=== PATIENT | female | born 1950 | race African-American/Black ===

== ENCOUNTER 2019-12-31 00:48 | Inpatient (IN) | payer MEDICARE, MEDICAID ==
[2019-12-31] MEDS ORDERED: Fentanyl 100 MCG/2 ML VIAL ONE (01:13)
--- NOTE | 2019-12-31 02:38 | PDOC.HHP ---
Hospitalist HPI - History of Present Illness Flank pain History of Present Illness: Patient with complex PMH including ESRD on HD and chronic pain presents to ED for evaluation of right sided flank pain. Tells me that symptoms appear over the weekend. Describes pain as sharp in nature radiating from CVA to right hip area. When most severe is described at 9/10 and interfered with her mobility. Palpation to the area appears to increase pain. Denies any fall or other trauma. Denies any fever chills malaise. Patient does not make any urine any longer hence denies any urinary symptoms. CT scan of the abdomen was obtained which incidentally shows evidence of anasarca, ascites, possible cirrhosis as well as inflamatory changes to left breast concerning for malignancy. Patient being admitted for observation and management of flank pain of unclear etiology as well as coordination of care for newly found ascities/possible cirrhosis and left breast inflamatory changes. Hospitalist ROS - Review of Systems Constitutional: denies: fever, chills, sweats, weakness, malaise, other Respiratory: denies: cough, dry, shortness of breath, hemoptysis, SOB with excertion, pleuritic pain, sputum, wheezing, other Cardiovascular: denies: chest pain, palpitations, orthopnea, paroxysmal noc. dyspnea, edema, light headedness, other Gastrointestinal: reports: abdominal pain (refers bloated feeling) Genitourinary: denies: dysuria, frequency, incontinence, hematuria, retention, other Musculoskeletal: reports: back pain, other (right sided flank pain/superficial) Neurological: denies: weakness, numbness, incoordination, change in speech, confusion, seizures, other Hospitalist History - Past Medical History Source: patient Musculoskeletal: reports: Chronic low back pain (hx of sciatic pain) Renal/: reports: Chronic renal failure - Exam General Appearance: NAD Eye: PERRL, anicteric sclera ENT: normocephalic atraumatic Neck: supple, no JVD Heart: RRR Respiratory: CTAB, no wheezes Gastrointestinal: soft, non-tender, no guarding Extremities: no cyanosis Skin - other findings: Right flank with non specific rash Psychiatric: normal affect, normal behavior, A&O x 3 Hospitalist H&P A/P - Plan Plan: Problem List 1. Flank pain 2. Anasarca 3. Ascites 4. Left sided inflammatory changes to breast 5. History of ESRD on HD Assessment and Plan Presents to evaluation of right sided flank pain of unclear etiology. Does have some skin changes to the area that could be contributing to pain. No evidence of cellulitis. CT scan abdomen does not reveal obvious reason for pain. Incidentally she is found to have ascites/anasarca/possible cirrhosis as well as inflammatory changes to left breast concerning for malignancy. Admit for observation to medical floor Continue with pain control Appears to be on Fentanyl per med records/awaiting med rec Add oxycodone PRN Will consult GI for guidance regarding evaluation of ascites and possible cirrhosis She will need eventual evaluation by GRANULATOR TENDER vs other for left breast abnormality If patient remains in the hospital passed 12/30 she will need nephrology consultation for HD PT/OT evaluation for discharge disposition
[2019-12-31] MEDS ORDERED: Ondansetron PF 4 MG/2 ML Vial IVP PRN (03:17)
[2019-12-31] MEDS: oxyCODONE 5 MG TAB PO PRN ×3 (03:31→20:09)
[2019-12-31 03:46] VITALS: BMI 38.4
[2019-12-31] MEDS: Levothyroxine Sodium 25 MCG TAB PO SCH (06:40)
[2019-12-31 07:20] LABS: #Eosinphils 0.1 thou/uL (0.0-0.7); #Lymphocytes 1.7 thou/uL (1.20-3.40); #Monocytes 1.1 thou/uL (0.11-0.59); #Neutrophils 5.5 thou/uL (1.40-6.50); %Basophils 0.4 % (0.0-1.0); %Lymphocytes 20.2 % (21.0-51.0); %Monocytes 12.9 % (0.0-10.0); %Neutrophils 65.5 % (42.0-75.0); Hemoglobin 10.9 g/dL (12.0-16.0); Mean Corpuscular Hemoglobin 30.4 pg (27.0-31.0); Mean Corpuscular Volume 98.1 fL (78.0-98.0); Mean Platelet Volume 11.8 fL (7.4-10.4); Platelet Count 110 thou/uL (130-400); RBC Distribution Width 16.2 % (11.5-14.5); Red Blood Cell (RBC) Count 3.58 mill/uL (4.20-5.40); White Blood Cell (WBC) Count 8.3 thou/uL (4.8-10.8)
[2019-12-31 07:38] LABS: ALT (SGPT) Less than 7 U/L (8-55); AST (SGOT) 15 U/L (5-34); Albumin 3.5 g/dL (3.4-4.8); Alkaline Phosphatase 95 U/L (40-110); Anion Gap 14 mmol/L (10-20); BUN (Urea Nitrogen) 25 mg/dL (9.8-20.1); Bilirubin, Total 0.7 mg/dL (0.2-1.2); Calc. Creatinine Clearance 17 mL/min (70-130); Calcium 9.1 mg/dL (7.8-10.44); Carbon Dioxide 33 mmol/L (23-31); Chloride 96 mmol/L (98-107); Estimated GFR-MDRD 10; Globulin 3.8 g/dL (2.4-3.5); Glucose 90 mg/dL (80-115); Potassium 3.6 mmol/L (3.5-5.1); Protein, Total 7.3 g/dL (6.0-8.3); Sodium 139 mmol/L (136-145)
[2019-12-31] MEDS: Sevelamer Carbonate 800 MG TAB PO SCH ×3 (08:21→18:26)
[2019-12-31] MEDS: Aspirin Chewable 81 MG TAB PO SCH (08:22)
[2019-12-31] MEDS: Heparin 5,000 UNITS/ML VIAL SC SCH ×3 (08:24→20:00)
[2019-12-31] MEDS: Metoprolol Tartrate 100 MG TAB PO SCH ×2 (11:06→20:01)
[2019-12-31] MEDS: Amlodipine 10 MG TAB PO SCH (11:06)
[2019-12-31] MEDS: Isosorbide Mononitrate (ER) 30 MG TAB PO SCH ×2 (11:06→20:01)
[2019-12-31] MEDS ORDERED: Sodium Chloride 0.9% 500 ML IV SCH (11:30)
--- NOTE | 2019-12-31 19:42 | PDOC.EVN ---
Event Note - Event Note Event Note: Seen and examined. Patient end-stage renal disease on hemodialysis, I have added nephrology consultation. Patient blood pressure on the low side, with chronic pain she has high tolerance to opiates and requesting higher doses. Blood pressure has limited pain control to her satisfaction. I discussed the case with gastroenterology who states that diffuse anasarca and ascites of unclear chronicity. Possible breast CA, though no definitive diagnosis. We will ask for input from oncology. Overall in long-term I do not see this patient doing well despite maximal medical therapy. Consider less aggressive measures with palliative care.
[2019-12-31] MEDS: Atorvastatin Calcium 20 MG TAB PO SCH (20:00)
[2019-12-31] MEDS: Insulin Glargine 10 UNITS in Pre-Filled Syringe 1 EACH SC SCH (20:08)
[2020-01-01] MEDS: Levothyroxine Sodium 25 MCG TAB PO SCH (05:20)
[2020-01-01] MEDS: Metoprolol Tartrate 100 MG TAB PO SCH ×2 (05:59→20:54)
[2020-01-01 06:48] LABS: Ferritin 1039.28 ng/mL (10-291)
[2020-01-01 06:48] LABS: Iron 54 ug/dL (50-170); Iron Binding Capacity, Total 221 mcg/dL (265-497)
[2020-01-01 07:02] LABS: HBCM Index 0.09 S/CO (0-0.79); HBSAg Index 0.15 S/CO (0-0.99); Hep A IgM AB Non-Reactive (NonReactive); Hep A IgM S/CO 0.24 S/CO (0-0.79); Hep B Surf Ag Non-Reactive S/CO (NonReactive); Hep C IgG Ab Non-Reactive (NonReactive); Hep C Index 0.17 S/CO (0-0.79); Hepatitis B Core IgM Abs Non-Reactive (NonReactive)
--- NOTE | 2020-01-01 07:09 | CON ---
DATE OF CONSULTATION: 12/31/2019 REASON FOR CONSULT: Question cirrhosis, ascites. HISTORY OF PRESENT ILLNESS: Ms. Nunn is a 69-year-old female who came to the hospital yesterday to the emergency room for right flank pain and swelling for past 3 days. She denied any falls. She has tried lidocaine patches apparently in the past and used some pain medicines per primary physician regarding hip and back pain. The patient was admitted after having labs and some imaging studies that shows anasarca. The reason for admission is not really clear. Her CAT scan did show some ascites and probably a nodular liver, that was without contrast. She does do dialysis regularly. She states that she has had quite a bit of swelling in her left breast and back and in her abdominal pannus for some time. She reports that she has seen her primary physician, Dr. Tanisha Luo, and told her that she has edema in the left breast secondary to the way she sleeps at night and this is related to soft tissue swelling. It seems that she may have had some type of outpatient workup for this in the past. As far as ascites or liver disease, she does not have any knowledge of this. She has seen Dr. Luo in the past, had a colonoscopy and a few polyps removed a few years ago. Presently, she denies any confusion, melena, hematochezia, hematemesis, fever, chills, nausea, or vomiting. The pain in the side has been fairly chronic. PAST MEDICAL HISTORY: End-stage renal disease, on hemodialysis for several years; hypertension; type 2 diabetes; obesity; hyperlipidemia; high cholesterol; she has dialysis on Monday, Monday, and Monday; chronic low back pain and history of sciatic pain. PAST SURGICAL HISTORY: Includes dialysis shunt in left upper extremity. REVIEW OF SYSTEMS: GENERAL: The patient notes she has difficulty sleeping and has to sleep on her left side. She denies any fever, chills. She denies any overt pain in the left breast, but has noted swelling there for some time. She also has swelling in her back. She states she has been told it is from fluid retention. RESPIRATORY: Negative for shortness of breath, cough. She does have shortness of breath on exertion. She does have dyspnea on exertion. CARDIOVASCULAR: Negative for chest pain. She has orthopnea with walking. She has some paroxysmal nocturnal dyspnea. GASTROINTESTINAL: She has had some bloating. She has not noted her abdomen to be any more or less swollen than usual. GENITOURINARY: Negative for dysuria, frequency or urgency. She does not make much urine at all if any. MUSCULOSKELETAL: Chronic back pain right, back swelling and pain more recently without a fall. NEUROLOGIC: Negative for strokes or prior TIAs. SKIN: Negative for rashes, myalgias, or arthralgias. MEDICATIONS: At home, she takes; 1. Lantus insulin. 2. Renvela. 3. Amlodipine. 4. Levothyroxine. 5. Isosorbide mononitrate. 6. Metoprolol. 7. Losartan. 8. Lyrica. 9. Pravastatin. 10. Sertraline. Here, she is on; 1. Norvasc. 2. Aspirin. 3. Lipitor. 4. Heparin 5000 subcu t.i.d. 5. Insulin sliding scale. 6. Imdur. 7. Synthroid. 8. Lopressor. 9. Zofran. 10. Oxycodone. 11. Protonix. 12. Senokot. 13. Renvela. SOCIAL HISTORY: Denies alcohol, drugs, or tobacco use. She lives with her . FAMILY HISTORY: Negative for cirrhosis as far she knows. ALLERGIES: NONE KNOWN. PHYSICAL EXAMINATION: GENERAL: She is resting in bed, lying on her left side. VITAL SIGNS: Temperature is 98, she has been afebrile since admission, blood pressure 87-101/47-57. GENERAL: She is in no distress. She states she feels about the same as when she came in. She is noted to be obese. She has anasarca in her abdominal wall, left breast, back, and skin of her flanks bilaterally. I did not feel any mass or see any abnormal skin lesions in the left breast. I do not feel any adenopathy in the arm. ABDOMEN: Noted for fluid wave and mild shifting dullness. There is no overt massive palpable hepatosplenomegaly, but it is difficult to examine her abdomen secondary to her size. She has a large pannus in the abdomen. MUSCULOSKELETAL: She has extremity with anasarca and edema up to her legs and into her buttocks and back. NEUROLOGIC: Otherwise, she is alert and oriented to person, place, and time. She speaks somewhat slowly, but she has good recollection for distant events and recent events. LABORATORY DATA: CAT scan was reviewed with Radiology. There is some ascites present. There is not a massive amount. There was quite a bit of anasarca throughout the tissues. White count is 8.3, hemoglobin is 10.9, platelet count 110. INR is 1.2 that was last year. Sodium 139, potassium 3.6, BUN and creatinine 25 and 5.28, glucose is 90. AST and ALT are 15 and 7, protein is 7.3, albumin 3.5. TSH was 0.9 and 423. ASSESSMENT: 1. This is a 69-year-old female, who has end-stage renal disease from hypertension, diabetes, who gets dialyzed with Dr. Darnell Monsivais. States she actually dialyzed last yesterday. She states there has been no real problems with this and she is very compliant with that. 2. The patient has been admitted with right flank pain, which seems to be related to anasarca. She seems to have total body fluid overload and very well may be that she has some issues with cirrhosis causing some fluid retention, but the patient has no knowledge if they have been having problems with getting fluid off on dialysis. She may have a component of heart failure that is always possible. Her last echocardiogram at this hospital was in 2014 and notable for an EF 50% to 60%, very mild aortic stenosis, trace mitral regurgitation. There is some risk of right heart failure with her size and weight. She may have a component of sleep apnea. Does not appear to have nephrotic syndrome based on her labs. 3. As far as underlying liver disease, she does appear to have a nodular liver, this could be ascites, this could be related to primary liver disease. There has been no evaluation in the past and she is not aware of anything. She has minimal risk factors except for obesity, which would put her at great risk for steatohepatitis which can lead to cirrhosis. 4. Swollen left breast. This seems to be anasarca, it is unclear what evaluation she has had in the outpatient. She seems to follow up very closely with Dr. Tanisha Luo. I would defer further evaluation at the primary team or her primary physician. The big data platform architect is not going to be helpful in evaluating this, this is something a general surgeon would if this is going to be evaluated further while she is in the hospital. RECOMMENDATIONS: 1. 2 g sodium diet. 2. Serologic workup for underlying liver disease. 3. Diagnostic paracentesis, rule out malignancy and infection which seems unlikely and check for indices and fluid that would indicate portal hypertension. 4. May be reasonable to involve her acrobatic dancer or her theater technician in her care. It seems that she is fluid overloaded. If there has been an issue with her not being able to fully get fluid taken off at dialysis secondary to blood pressure issues, maybe there is some option from a cardiac standpoint to increase this either with midodrine or evaluating her cardiac function and make sure she does not have component of heart failure or anything else. We will defer this decision to the primary hospitalist treating the patient. Job ID: [id number]
[2020-01-01 08:03] LABS: INR-International Normal Ratio 1.2; PTT 37.1 SEC (22.9-36.1); Prothrombin Time 14.8 sec (12.0-14.7)
[2020-01-01] MEDS: Aspirin Chewable 81 MG TAB PO SCH (08:20)
[2020-01-01] MEDS: Amlodipine 10 MG TAB PO SCH (08:20)
[2020-01-01] MEDS: Heparin 5,000 UNITS/ML VIAL SC SCH ×3 (08:21→20:55)
[2020-01-01] MEDS: Isosorbide Mononitrate (ER) 30 MG TAB PO SCH ×2 (08:21→20:55)
[2020-01-01] MEDS: Sevelamer Carbonate 800 MG TAB PO SCH ×3 (08:26→17:56)
[2020-01-01] MEDS ORDERED: Sodium Bicarbonate 2.5 MEQ/5 ML VIAL ONE (12:39)
[2020-01-01] MEDS ORDERED: Lidocaine 1% PF 5 ML VIAL ONE (12:39)
--- NOTE | 2020-01-01 12:53 | PDOC.HOSPP ---
- Subjective Encounter Date: 01/01/20 Encounter Time: 07:20 Subjective: Pt seen for followup re: ascites. Flank pain still+, but better. - Objective Vital Signs & Weight: Vital Signs (12 hours) Temp Pulse Resp BP Pulse Ox 01/01/20 08:20 65 01/01/20 08:00 98.5 F 60 18 102/61 98 01/01/20 05:29 65 120/73 01/01/20 03:43 98 F 65 18 105/54 L 98 Weight Weight 238 lb 1.588 oz I&O: 12/31/19 01/01/20 01/02/20 06:59 06:59 06:59 Intake Total 202 1500 Balance 202 1500 Result Diagrams: 12/31/19 07:00 12/31/19 07:00 Additional Labs: Accuchecks 01/01/20 12/31/19 12/31/19 05:29 19:23 18:47 POC Glucose 87 108 131 H 12/31/19 16:32 POC Glucose 96 Labs and MARs reviewed by or Hospitalist ROS - Review of Systems Constitutional: denies: fever, chills, sweats, weakness, malaise Respiratory: reports: SOB with excertion. denies: cough, shortness of breath, pleuritic pain, wheezing Cardiovascular: denies: chest pain, palpitations, orthopnea, paroxysmal noc. dyspnea, edema, light headedness Gastrointestinal: reports: abdominal pain. denies: nausea, vomiting, diarrhea, constipation, melena, hematochezia Genitourinary: denies: dysuria, frequency, incontinence, hematuria, retention - Medication Medications: Active Medications Generic Name Dose Route Start Last Admin Trade Name Freq PRN Reason Stop Dose Admin Amlodipine Besylate 10 mg 12/31/19 09:00 01/01/20 08:20 Norvasc PO Not Given DAILY [facility] Aspirin 81 mg 12/31/19 09:00 01/01/20 08:20 Aspirin Chewable PO Not Given DAILY [facility] Atorvastatin Calcium 20 mg 12/31/19 21:00 12/31/19 20:00 Lipitor PO 20 mg HS JOSE MANUEL Administration Heparin Sodium (Porcine) 5,000 units 12/31/19 09:00 01/01/20 08:21 Heparin SC Not Given TID [facility] Insulin Glargine 10 units/ 0.1 mls @ 0 mls/hr 12/31/19 21:00 12/31/19 20:08 Miscellaneous Medication SC 0.1 mls HS JOSE MANUEL Administration Isosorbide Mononitrate 30 mg 12/31/19 09:00 01/01/20 08:21 Imdur Er PO Not Given BID JOSE MANUEL Levothyroxine Sodium 25 mcg 12/31/19 06:00 01/01/20 05:20 Synthroid PO Not Given 0600 JOSE MANUEL Metoprolol Tartrate 100 mg 12/31/19 09:00 01/01/20 05:59 Lopressor PO 100 mg BID JOSE MANUEL Administration Ondansetron HCl 4 mg 12/31/19 03:17 12/31/19 03:41 Zofran IVP 4 mg Q6H PRN Administration Nausea/Vomiting Oxycodone HCl 10 mg 12/31/19 03:17 12/31/19 20:09 Oxycodone Ir PO 10 mg Q4H PRN Administration Moderate to Severe Pain (6-10) Pantoprazole Sodium 40 mg 12/31/19 09:00 01/01/20 08:21 Protonix PO 40 mg DAILY JOSE MANUEL Administration Sevelamer Carbonate 2,400 mg 12/31/19 08:00 01/01/20 12:09 Renvela PO Not Given TID-WM JOSE MANUEL - Exam General Appearance: awake alert Eye: anicteric sclera ENT: normocephalic atraumatic, no oropharyngeal lesions Neck: supple, symmetric, no thyromegaly, no lymphadenopathy Heart: RRR, no gallops, no rubs, normal peripheral pulses Respiratory: no wheezes, no ronchi, normal chest expansion Respiratory - other findings: Holland crackles Gastrointestinal: soft, non-distended, normal bowel sounds Gastrointestinal - other findings: Mild R abdo tenderness Psychiatric: normal affect, normal behavior, oriented to person, oriented to place Hosp A/P - Plan - Plan 1. Ascites 2. Flank pain 3. Anasarca 4. ESRD on HD 5. Left sided inflammatory changes to breast - Assessment Pain medications PRN oxycodone GI/nephrology following Oncology consulted Pt sees Dr. Felder, will request copy of echo For paracentesis
[2020-01-01 14:04] LABS: RBC Count-Automated (BF) 737 /cumm; WBC/Nucleated-Auto (BF) 256 uL
[2020-01-01 14:22] LABS: BF Color Yellow; Body Fluid Source Ascites Body Fluid; Clarity Hazy (Clear); Tube # EDTA
[2020-01-01 15:16] LABS: BF Segmented Neutrophils 11 %; Cell Count Non Hematic 49 %; Lymphocytes 39 %
--- NOTE | 2020-01-01 15:23 | ULT ---
Ultrasound-guided paracentesis: HISTORY: Cirrhosis and ascites FINDINGS: Informed consent obtained prior to the procedure. Preprocedural imaging demonstrated intrap eritoneal free fluid. An area was marked in the right upper quadrant mid axillary line, and then meticulously prepped and d raped in normal sterile fashion and anesthetized with 1% buffered lidocaine. With direct sonographic guidance, a 19-gauge needle and 5 Fijian Yueh catheter were advanced into the abdomen. After the return of fluid, the catheter was advanced, and the needle was removed. Approximately 4 L of dark clear straw-colored was aspirated. The introducer sheath was removed, and h emostasis was achieved with direct pressure. A dry sterile dressing was placed. The patient tolerated the procedure well and without immediate complication. IMPRESSION: Technically successful ultrasound-guided paracentesis.
--- NOTE | 2020-01-01 15:34 | PRG ---
DATE OF SERVICE: 01/01/2020 REASON FOR CONSULTATION: New onset ascites with the possibility of cirrhosis of the liver. SUBJECTIVE: I was able to interview the patient in dialysis today, and the patient was able to respond appropriately, although responses were somewhat delayed. Currently, she states that she is feeling more fatigued and tired in addition to having continued right flank pain, but otherwise is not having any difficulty. Currently, she denies any nausea, vomiting, fevers, chills, hematemesis, melena, or hematochezia. OBJECTIVE: VITAL SIGNS: Temperature 98.5, pulse 65, blood pressure 102/61, respiratory rate 18, saturating 98% on room air. GENERAL: The patient was lying in bed, in no acute distress. Alert and oriented x3. Cognition somewhat slowed. CARDIOVASCULAR: 3/6 systolic murmur best heard at the left upper sternal border. RESPIRATORY: Clear to auscultation bilaterally. ABDOMEN: Normoactive bowel sounds. Soft. Moderate distention with positive shifting dullness. Tenderness to palpation in all abdominal quadrants. EXTREMITIES: 1+/2+ bilateral lower extremity edema extending to mid estrada. LABORATORY DATA: Chemistry with an iron of 54, ferritin 1039, TIBC 229, IgG 1697. Hepatitis A, B, and C were all negative. Paracentesis is pending at this time. IMAGING DATA: No current GI imaging is available for review. ASSESSMENT AND PLAN: The patient is a 69-year-old female with past medical history of hypertension, diabetes, obesity, hyperlipidemia, and end-stage renal disease, on hemodialysis, presenting with new onset ascites. New onset ascites: The patient is presenting with what appears to be hypervolemia associated with ascites, anasarca, and lower extremity edema. However, the patient does have a diagnosis of end-stage renal disease and is on hemodialysis, for which the patient may not be having enough fluid withdrawn during dialysis sessions. However, with the appearance of this new onset ascites, it is concerning for the presence of a hepatic origin versus cardiac versus renal. The paracentesis at this time would be very informative in terms of establishing the etiology of the ascites. RECOMMENDATIONS: 1. We will follow up on the paracentesis results with the possibility of portal hypertension contributing to new onset ascites. 2. We would defer to Nephrology for hypervolemia issues and fluid taken off during dialysis. 3. We will continue to follow up on the liver workup obtained thus far including ASMA for possible autoimmune hepatitis given her elevated IgG. 4. Pain control per primary team. We will continue to follow. Please call with any questions. Job ID: [id number]
[2020-01-01] MEDS: Lidocaine 5% Patch TD SCH (15:38)
--- NOTE | 2020-01-01 20:27 | PDOC.EVN ---
Event Note - Event Note Event Note: Notified by RN, patient with temp of 100.3, she has paracentesis done today. Will obtain labs for today including CBC, CMP, and lactic acid as well as procalcitonin. Unable to obtain UA as nurse states patient is ESRD on HD with no ability to produce urine. Also blood cultures ordered. Tylenol ordered.
[2020-01-01] MEDS: Atorvastatin Calcium 20 MG TAB PO SCH (20:54)
[2020-01-01] MEDS: Insulin Glargine 10 UNITS in Pre-Filled Syringe 1 EACH SC SCH (20:55)
[2020-01-01 21:02] LABS: #Lymphocytes 1.5 thou/uL (1.20-3.40); #Monocytes 0.7 thou/uL (0.11-0.59); #Neutrophils 5.1 thou/uL (1.40-6.50); %Basophils 0.4 % (0.0-1.0); %Eosinophils 0.5 % (0.0-10.0); %Lymphocytes 20.3 % (21.0-51.0); %Monocytes 9.7 % (0.0-10.0); Hemoglobin 10.9 g/dL (12.0-16.0); Mean Corpuscular HGB CONC 31.2 g/dL (32.0-36.0); Mean Corpuscular Hemoglobin 30.4 pg (27.0-31.0); Mean Corpuscular Volume 97.5 fL (78.0-98.0); Mean Platelet Volume 12.4 fL (7.4-10.4); Platelet Count 100 thou/uL (130-400); RBC Distribution Width 15.9 % (11.5-14.5); Red Blood Cell (RBC) Count 3.59 mill/uL (4.20-5.40); White Blood Cell (WBC) Count 7.4 thou/uL (4.8-10.8)
[2020-01-01 21:12] LABS: Lactic Acid 0.9 mmol/L (0.5-2.2)
[2020-01-01 21:16] LABS: ALT (SGPT) Less than 7 U/L (8-55); AST (SGOT) 13 U/L (5-34); Albumin 3.3 g/dL (3.4-4.8); Alkaline Phosphatase 89 U/L (40-110); Anion Gap 15 mmol/L (10-20); BUN (Urea Nitrogen) 22 mg/dL (9.8-20.1); Bilirubin, Total 0.7 mg/dL (0.2-1.2); Calc. Creatinine Clearance 18 mL/min (70-130); Calcium 8.9 mg/dL (7.8-10.44); Carbon Dioxide 30 mmol/L (23-31); Chloride 97 mmol/L (98-107); Estimated GFR-MDRD 10; Globulin 3.4 g/dL (2.4-3.5); Glucose 106 mg/dL (80-115); Potassium 4.3 mmol/L (3.5-5.1); Protein, Total 6.7 g/dL (6.0-8.3); Sodium 138 mmol/L (136-145)
[2020-01-02] MEDS ORDERED: Lidocaine Patch Removal 1 EACH TOP SCH (04:00)
[2020-01-02] MEDS: Levothyroxine Sodium 25 MCG TAB PO SCH (05:21)
[2020-01-02] MEDS: Heparin 5,000 UNITS/ML VIAL SC SCH ×3 (07:46→21:03)
[2020-01-02] MEDS: Amlodipine 10 MG TAB PO SCH (07:47)
[2020-01-02] MEDS: Sevelamer Carbonate 800 MG TAB PO SCH ×3 (07:47→17:06)
[2020-01-02] MEDS: Aspirin Chewable 81 MG TAB PO SCH (07:47)
[2020-01-02] MEDS: Metoprolol Tartrate 100 MG TAB PO SCH ×2 (07:48→20:49)
[2020-01-02] MEDS: Acetaminophen 325 MG TAB PO PRN ×3 (07:49→18:14)
[2020-01-02] MEDS: Isosorbide Mononitrate (ER) 30 MG TAB PO SCH ×2 (07:49→20:49)
--- NOTE | 2020-01-02 11:04 | PRG ---
DATE OF SERVICE: 01/02/2020 SUBJECTIVE: Ms. Nunn is feeling okay. This morning, she remains tired. Abdominal discomfort has decreased. No shortness of breath. She tolerated her breakfast today. OBJECTIVE: VITAL SIGNS: Temperature 97.9, pulse 56, blood pressure 103/60, 99% oxygen saturation on 2 L nasal cannula. GENERAL: Lying in bed comfortably, in no distress. HEART: Regular rate and rhythm. LUNGS: Clear to auscultation bilaterally. ABDOMEN: Mild distention. Bowel sounds present. Soft and nontender to palpation. EXTREMITIES: 1+ lower extremity edema. LABORATORY STUDIES: WBC 7.4, hemoglobin 10.9, platelets 100. INR 1.2. Sodium 138, potassium 4.3, BUN 22, creatinine 5.12, glucose 65. LFTs all normal with total bilirubin 0.7, alkaline phosphatase 89, AST 13, ALT less than 7. Serum albumin is 3.3. AFP is only 4.6. Alpha-1 antitrypsin phenotype is pending. Viral hepatitis serologies are negative. Serum total IgG is very mildly elevated . AMIRA is pending. ASMA is pending. Ascites fluid studies demonstrate 256 wbc's, 737 rbc's, only 11% neutrophils. Fluid total protein is 4.3, fluid albumin is pending, fluid triglycerides only 29, fluid cytology pending. ASSESSMENT/PLAN: 1. Ascites with anasarca. 2. End-stage renal disease on dialysis. 3. Pulmonary hypertension. 4. Diastolic heart failure. Her ascites is evidently new onset, but it is in the context of end-stage renal disease, anuric state, and also chronic diastolic heart failure with pulmonary hypertension based on her most recent echocardiogram. I note the normal LFTs. No prior history of liver disease. Still awaiting results of some studies including autoimmune markers, also awaiting fluid albumin. My current impression is that her ascites and anasarca are not likely primarily related to liver disease, but rather her right heart failure and kidney disease. We will continue to follow along for results of fluid studies and a liver lab workup. Job ID: [id number]
--- NOTE | 2020-01-02 12:56 | CON ---
DATE OF CONSULTATION: 01/02/2020 REASON FOR CONSULTATION: Volume overload. PRIMARY CHAIN PEGGER: Glenn Felder MD HISTORY OF PRESENT ILLNESS: Ms. Nunn is a very pleasant 69-year-old -[place] female, who has been evaluated and seen in the hospital in the past by Dr. Aura Crain, here. She follows Dr. Felder as an outpatient. She came in for worsening shortness of breath. She was found to have ascites and possibly cirrhosis, so GI was consulted. They did paracentesis yesterday. Her shortness of breath improved. She also has end-stage renal disease and is on hemodialysis. She had about 2 L taken out yesterday. Her normal routine is to get a Kristen Monday, Monday, Monday. She gets about 1 to 1.5 L taken out every time, so yesterday getting 2 L out is more than she is normally used to. She also spiked a fever last night. She denies any chest pain, tightness, pressure. Only the shortness of breath that she has been having just slightly better. PAST MEDICAL HISTORY: 1. Diastolic heart failure. 2. Mild aortic stenosis on echo 5 years ago. 3. Chronic low back pain. 4. End-stage renal disease, on hemodialysis. 5. Obesity. 6. Hypothyroidism. 7. Hypertension. 8. GERD. 9. Type 2 diabetes. 10. Hyperlipidemia. 11. Coronary artery disease with bypass. PAST SURGICAL HISTORY: Left upper extremity hemodialysis catheter placed. OUTPATIENT MEDICATIONS: 1. Lantus. 2. Renvela. 3. Amlodipine 5 mg at bedtime. 4. Levothyroxine. 5. Isosorbide mononitrate 30 mg b.i.d. 6. Metoprolol 50 mg b.i.d. 7. Losartan 25 mg a day. 8. Lyrica 75 mg b.i.d. 9. Pravastatin 80 mg at bedtime. 10. Sertraline. ALLERGIES: CODEINE. SOCIAL HISTORY: No alcohol, tobacco, or drugs. REVIEW OF SYSTEMS: A 12-point review of systems was done and was all negative unless stated in the history of present illness. PHYSICAL EXAMINATION: VITAL SIGNS: Temperature 97.9, pulse 56, respiratory rate 17, sat 99% on nasal cannula 2 L, and blood pressure 103/60. GENERAL: Awake, alert, and oriented x3, no distress. HEENT: Normocephalic and atraumatic. NECK: Supple. LUNGS: Clear. CARDIOVASCULAR: S1 and S2. No S3 or S4. No murmurs. ABDOMEN: Soft. Positive bowel sounds. EXTREMITIES: 2+ edema. SKIN: Warm and dry. LABORATORY DATA: Laboratory work was reviewed. CBC with a white count of 8.3, hemoglobin of 10, hematocrit of 35, and platelet count of 110. Coags were reviewed. Chemistries were reviewed, unremarkable except for BUN and creatinine which were elevated. GFR of 10. AST is 13, ALT less than assay limit. Normal alkaline phosphatase. BNP was 1845. Albumin of 3.5. Blood cultures negative so far. EKG was reviewed. ASSESSMENT: 1. Acute on chronic diastolic heart failure. 2. End-stage renal disease, currently volume overload. 3. Cirrhosis without portal hypertension. 4. Right ventricular dysfunction, likely from end-stage renal disease. 5. Low-grade fever yesterday of 100.3. PLAN: 1. Fluid control with hemodialysis as she does not urinate. 2. Awaiting results of echocardiogram. 3. Further recommendations per results of echocardiogram. 4. Dr. Crain will follow up in the morning. Job ID: [id number]
[2020-01-02] MEDS: Lidocaine 5% Patch TD SCH ×2 (15:46→20:48)
--- NOTE | 2020-01-02 17:23 | CON ---
DATE OF CONSULTATION: REASON FOR CONSULTATION: Left breast swelling. HISTORY OF PRESENT ILLNESS: Ms. Nunn is a pleasant 69-year-old female who presented to the hospital with a 3-day history of right flank pain. She has a history of sciatica on the right side. She had a CT scan of her abdomen and pelvis on admission, which noted extensive edema and anasarca of the soft tissues on the left including her left breast. She had new ascites and cirrhosis. She was admitted for further workup. GI is currently working up her cirrhosis. We were asked to see her regarding her left breast edema. The patient states that she has seen her primary care for her edema, and was told that it was due to her sleeping on her left side secondary to right sciatic pain. She states it is currently improved after her most recent dialysis. She denies any weight loss. No family history of breast cancer. She does not remember her last mammogram. The patient was seen at bedside. She denies any complaints at this time. PAST MEDICAL HISTORY: 1. End-stage renal disease, on hemodialysis. 2. Hypertension. 3. Type 2 diabetes. 4. Obesity. 5. Hyperlipidemia. 6. Chronic back pain. 7. History of right sciatic pain. PAST SURGICAL HISTORY: Left fistula placement. ALLERGIES: CODEINE. HOME MEDICATIONS: 1. Amlodipine. 2. Insulin. 3. Isosorbide. 4. Levothyroxine. 5. Losartan. 6. Metoprolol. 7. Pravastatin. 8. Lyrica. 9. Sertraline. 10. Renvela. FAMILY HISTORY: No known history of breast or ovarian cancer. SOCIAL HISTORY: Lives with her . No alcohol, tobacco, or illicit drug use. REVIEW OF SYSTEMS: A 10-point review of systems is negative except for noted in HPI. PHYSICAL EXAMINATION: VITAL SIGNS: Temperature is 97.9, pulse is 56, respiratory rate 17, BP is 103/ 60, and she is 99% on room air. GENERAL: A well-developed, well-nourished female, in no acute distress. HEENT: Normocephalic and atraumatic. Pupils equal and reactive to light. NECK: Supple. CV: Regular rate and rhythm. She has a murmur. LUNGS: Clear anterior. ABDOMEN: Obese and nontender. EXTREMITIES: 2+ edema with anasarca. CHEST: Her right breast is soft with no masses. Her left breast has no skin changes, but a palpable area of swelling along the lower outer rim of her breast. There are no palpable lymph nodes in her left axilla. NEUROLOGIC: Nonfocal. PERTINENT LABORATORY DATA AND X-RAYS: Current WBCs 7.4, hemoglobin 10.9, hematocrit 35.0, and platelet count is 100,000. She has 69% neutrophils and 20% lymphocytes. PT is 14.8, INR is 1.2, and PTT is 37.1. Sodium 138, potassium 4.3, chloride 97 , CO2 is 30, BUN is 22, creatinine 5.12, and calcium 8.9. Bilirubin 0.7, AST is 13, ALT is less than 7, alkaline phosphatase is 89, serum total protein 6.7, albumin 3.3, and globulin 3.4. Hepatitis panel is negative. ASSESSMENT: 1. End-stage renal disease, on hemodialysis. 2. Cirrhosis with ascites. 3. Left breast swelling. DISCUSSION: The patient's left breast swelling apparently has been present for some time. It is unclear what workup is done by Dr. Garay. There are no skin changes or open lesions nor palpable lymph nodes in her left axilla. She does not remember when she had a mammogram last. Would certainly recommend a mammogram to further characterize this edema. This would have to be done in the outpatient setting as they are not done in the hospital. If there is an abnormality, she should see a breast surgeon for further workup. Thank you for the consult. We will have to see this patient in the outpatient setting if needed. Job ID: [id number] [facility]
--- NOTE | 2020-01-02 19:29 | PDOC.HOSPP ---
- Subjective Encounter Date: 01/02/20 Encounter Time: 10:00 Subjective: Pt seen for followup re: volume overload. Reports pain is slightly better, now localized to paracentesis site. - Objective Vital Signs & Weight: Vital Signs (12 hours) Pulse BP Pulse Ox 01/02/20 08:00 99 01/02/20 07:47 56 L 103/60 Weight Weight 238 lb 1.588 oz I&O: 01/01/20 01/02/20 01/03/20 06:59 06:59 06:59 Intake Total 1500 Balance 1500 Result Diagrams: 01/03/20 05:53 01/03/20 05:53 Additional Labs: Accuchecks 01/02/20 01/02/20 01/02/20 16:51 11:04 04:37 POC Glucose 106 103 65 L 01/01/20 19:50 POC Glucose 128 H Labs and MARs reviewed by nd Hospitalist ROS - Review of Systems Cardiovascular: denies: chest pain, palpitations, orthopnea, paroxysmal noc. dyspnea, edema, light headedness Gastrointestinal: reports: abdominal pain Skin: denies: rash, lesions, yasmin, bruising - Medication Medications: Active Medications Generic Name Dose Route Start Last Admin Trade Name Freq PRN Reason Stop Dose Admin Acetaminophen 650 mg 01/01/20 20:23 01/02/20 18:14 Tylenol PO 650 mg Q4H PRN Administration Headache/Fever or Pain Amlodipine Besylate 10 mg 12/31/19 09:00 01/02/20 07:47 Norvasc PO Not Given DAILY JOSE MANUEL Aspirin 81 mg 12/31/19 09:00 01/02/20 07:47 Aspirin Chewable PO 81 mg DAILY JOSE MANUEL Administration Atorvastatin Calcium 20 mg 12/31/19 21:00 01/01/20 20:54 Lipitor PO 20 mg HS JOSE MANUEL Administration Heparin Sodium (Porcine) 5,000 units 12/31/19 09:00 01/02/20 15:46 Heparin SC 5,000 units TID JOSE MANUEL Administration Insulin Glargine 10 units/ 0.1 mls @ 0 mls/hr 12/31/19 21:00 01/01/20 20:55 Miscellaneous Medication SC 0.1 mls HS JOSE MANUEL Administration Isosorbide Mononitrate 30 mg 12/31/19 09:00 01/02/20 07:49 Imdur Er PO Not Given BID JOSE MANUEL Levothyroxine Sodium 25 mcg 12/31/19 06:00 01/02/20 05:21 Synthroid PO 25 mcg 0600 JOSE MANUEL Administration Metoprolol Tartrate 100 mg 12/31/19 09:00 01/02/20 07:48 Lopressor PO Not Given BID JOSE MANUEL Ondansetron HCl 4 mg 12/31/19 03:17 12/31/19 03:41 Zofran IVP 4 mg Q6H PRN Administration Nausea/Vomiting Oxycodone HCl 10 mg 12/31/19 03:17 12/31/19 20:09 Oxycodone Ir PO 10 mg Q4H PRN Administration Moderate to Severe Pain (6-10) Pantoprazole Sodium 40 mg 12/31/19 09:00 01/02/20 07:50 Protonix PO 40 mg DAILY JOSE MANUEL Administration Sevelamer Carbonate 2,400 mg 12/31/19 08:00 01/02/20 17:06 Renvela PO 2,400 mg TID-WM JOSE MANUEL Administration - Exam General - other findings: Obese Eye: anicteric sclera ENT: moist mucosa Neck: supple Heart: RRR, no rubs Respiratory: CTAB Gastrointestinal: soft, normal bowel sounds, no guarding, no rigidity Gastrointestinal - other findings: mild RUQ tenderness Psychiatric: normal affect, normal behavior Hosp A/P - Plan - Assessment 1. Volume overload 2. Flank pain 3. Ascites/anasarca 4. ESRD on HD 5. Left sided inflammatory changes to breast - Plan Increase Lidoderm dose to two patches q24h Continue PRN oxycodone Check 2D echo, consult cardiology Dialysis per nephrology service.
[2020-01-02] MEDS: Atorvastatin Calcium 20 MG TAB PO SCH (20:48)
[2020-01-02] MEDS: Insulin Glargine 10 UNITS in Pre-Filled Syringe 1 EACH SC SCH (20:49)
[2020-01-03] MEDS: Levothyroxine Sodium 25 MCG TAB PO SCH (05:26)
[2020-01-03 06:30] LABS: #Basophils 0.1 thou/uL (0.0-0.2); #Eosinphils 0.2 thou/uL (0.0-0.7); #Lymphocytes 1.5 thou/uL (1.20-3.40); #Monocytes 0.8 thou/uL (0.11-0.59); #Neutrophils 4.6 thou/uL (1.40-6.50); %Basophils 0.7 % (0.0-1.0); %Eosinophils 2.8 % (0.0-10.0); %Lymphocytes 21.5 % (21.0-51.0); %Monocytes 11.2 % (0.0-10.0); %Neutrophils 63.8 % (42.0-75.0); Hemoglobin 10.3 g/dL (12.0-16.0); Mean Corpuscular HGB CONC 30.3 g/dL (32.0-36.0); Mean Corpuscular Hemoglobin 29.7 pg (27.0-31.0); Mean Platelet Volume 11.8 fL (7.4-10.4); Platelet Count 102 thou/uL (130-400); RBC Distribution Width 15.8 % (11.5-14.5); Red Blood Cell (RBC) Count 3.48 mill/uL (4.20-5.40); White Blood Cell (WBC) Count 7.2 thou/uL (4.8-10.8)
[2020-01-03 06:43] LABS: Anion Gap 14 mmol/L (10-20); BUN (Urea Nitrogen) 32 mg/dL (9.8-20.1); Calc. Creatinine Clearance 14 mL/min (70-130); Calcium 8.8 mg/dL (7.8-10.44); Carbon Dioxide 27 mmol/L (23-31); Chloride 99 mmol/L (98-107); Estimated GFR-MDRD 8; Glucose 66 mg/dL (80-115); Potassium 4.3 mmol/L (3.5-5.1); Sodium 136 mmol/L (136-145)
[2020-01-03] MEDS ORDERED: Amlodipine 10 MG TAB PO SCH (09:00)
[2020-01-03] MEDS: Sevelamer Carbonate 800 MG TAB PO SCH ×3 (09:06→17:52)
[2020-01-03] MEDS: Aspirin Chewable 81 MG TAB PO SCH (09:06)
[2020-01-03] MEDS: Amlodipine 5 MG TAB PO SCH (09:06)
[2020-01-03] MEDS: Lidocaine Patch Removal 1 EACH TOP SCH (09:06)
[2020-01-03] MEDS: Heparin 5,000 UNITS/ML VIAL SC SCH ×3 (09:07→20:56)
[2020-01-03] MEDS: Senokot S 8.6-50 MG TAB PO PRN ×2 (09:07→20:55)
[2020-01-03] MEDS: Isosorbide Mononitrate (ER) 30 MG TAB PO SCH ×2 (09:07→20:52)
--- NOTE | 2020-01-03 09:14 | PRG ---
DATE OF SERVICE: 01/03/2020 SUBJECTIVE: Ms. Nunn is a patient of Dr. Glenn Felder, with a right heart failure and pulmonary hypertension as well as end-stage renal disease. The patient has had right heart failure, cirrhosis, and ascites here. She has had a paracentesis. Today, she feels okay, but her blood pressure is low, 102/61; pulse 54 and regular. OBJECTIVE: LUNGS: Clear. CARDIAC: Normal S1. Normal S2. ABDOMEN: Soft and nontender. EXTREMITIES: [id number] edema. LABORATORY DATA: Echocardiogram shows normal left ventricular systolic function with markedly enlarged right ventricle and pulmonary hypertension and markedly increased right atrial pressures. ASSESSMENT: 1. Right heart failure. 2. End-stage renal disease. 3. Blood pressure and heart rate are too low. PLAN: 1. Reduce metoprolol to 50 mg twice a day. 2. Reduce amlodipine to 5 mg a day. 3. Hopefully, more fluid could be taken off during dialysis with a better blood pressure. No other recommendations. The patient will need to follow up closely with Dr. Felder after discharge. Job ID: [id number]
--- NOTE | 2020-01-03 11:31 | PRG ---
DATE OF SERVICE: 01/03/2020 SUBJECTIVE: Ms. Nunn is doing okay, resting well. She is tolerating her diet. She has some ongoing mild right-sided abdominal discomfort. OBJECTIVE: VITAL SIGNS: Temperature 98.0, pulse 54, blood pressure 102/61, and 98% oxygen saturation on room air. GENERAL: Obese, lying in bed comfortably, no acute distress. HEART: Regular rate and rhythm. LUNGS: Bibasilar crackles. No wheezing. No respiratory distress. ABDOMEN: Mild distention. Obese. Bowel sounds present. Soft. Some tenderness to palpation on the right side. No ecchymosis appreciated. EXTREMITIES: 1+ bilateral lower extremity edema. LABORATORY DATA: Glucose 152. ASMA, AMIRA and AMA are still pending. Viral hepatitis serologies negative. Alpha-1 antitrypsin is pending. Paracentesis fluid studies showed 256 wbc's, only 11% neutrophils. Fluid cytology is negative. Fluid triglycerides only 29. Fluid total protein is 4.3. Fluid albumin not yet resulted for some reason. ASSESSMENT/PLAN: 1. Ascites with anasarca. 2. End-stage renal disease, on dialysis. 3. Pulmonary hypertension. 4. Diastolic heart failure. Her echocardiogram demonstrates severe diastolic and right-sided heart failure with evidence of pulmonary hypertension and severe tricuspid regurgitation with the ascites fluid total protein of 4.3, this does indeed appear to represent cardiac ascites, rather than ascites secondary to portal hypertension. Still awaiting autoimmune markers with regard to liver workup, but I have very low suspicion for autoimmune hepatitis or PBC given the normal transaminases. The patient probably does have some degree of cardiac cirrhosis, but this is not the primary contributor to her presentation. Fluid management per dialysis as the patient is auric. No further GI studies or interventions are planned at this time. GI is going to sign off, but please call back anytime with questions or concerns. Job ID: [id number]
[2020-01-03] MEDS: oxyCODONE 5 MG TAB PO PRN ×2 (13:44→20:52)
[2020-01-03 15:14] LABS: Alpha-1-Antitrypsin 217 mg/dL (101-187)
--- NOTE | 2020-01-03 18:27 | PDOC.HOSPP ---
- Subjective Encounter Date: 01/03/20 Encounter Time: 10:40 Subjective: Pt seen for followup re: volume overload. Feels better today. Pain improving. - Objective Vital Signs & Weight: Vital Signs (12 hours) Temp Pulse Resp BP Pulse Ox 01/03/20 09:06 54 L 01/03/20 07:43 98.0 F 54 L 20 102/61 98 Weight Weight 238 lb 1.588 oz Result Diagrams: 01/03/20 05:53 01/03/20 05:53 Additional Labs: Accuchecks 01/03/20 01/03/20 01/02/20 11:28 04:38 19:39 POC Glucose 86 83 152 H Labs and MARs reviewed by la Hospitalist ROS - Review of Systems Cardiovascular: denies: chest pain, palpitations, orthopnea, paroxysmal noc. dyspnea, edema, light headedness Skin: denies: rash, lesions, yasmin, bruising - Medication Medications: Active Medications Generic Name Dose Route Start Last Admin Trade Name Freq PRN Reason Stop Dose Admin Acetaminophen 650 mg 01/01/20 20:23 01/02/20 18:14 Tylenol PO 650 mg Q4H PRN Administration Headache/Fever or Pain Amlodipine Besylate 5 mg 01/03/20 09:00 01/03/20 09:06 Norvasc PO 5 mg DAILY JOSE MANUEL Administration Aspirin 81 mg 12/31/19 09:00 01/03/20 09:06 Aspirin Chewable PO 81 mg DAILY JOSE MANUEL Administration Atorvastatin Calcium 20 mg 12/31/19 21:00 01/02/20 20:48 Lipitor PO 20 mg HS JOSE MANUEL Administration Heparin Sodium (Porcine) 5,000 units 12/31/19 09:00 01/03/20 13:43 Heparin SC Not Given TID [facility] Insulin Glargine 10 units/ 0.1 mls @ 0 mls/hr 12/31/19 21:00 01/02/20 20:49 Miscellaneous Medication SC 0.1 mls HS JOSE MANUEL Administration Isosorbide Mononitrate 30 mg 12/31/19 09:00 01/03/20 09:07 Imdur Er PO 30 mg BID JOSE MANUEL Administration Levothyroxine Sodium 25 mcg 12/31/19 06:00 01/03/20 05:26 Synthroid PO 25 mcg 0600 JOSE MANUEL Administration Lidocaine 2 patch 01/02/20 20:00 01/02/20 20:48 Lidoderm 5% Patch TD 2 patch 2000 JOSE MANUEL Administration Miscellaneous Medication 2 each 01/03/20 08:00 01/03/20 09:06 Lidocaine Patch Removal TOP 2 each 0800 JOSE MANUEL Administration Ondansetron HCl 4 mg 12/31/19 03:17 12/31/19 03:41 Zofran IVP 4 mg Q6H PRN Administration Nausea/Vomiting Oxycodone HCl 10 mg 12/31/19 03:17 01/03/20 13:44 Oxycodone Ir PO 10 mg Q4H PRN Administration Moderate to Severe Pain (6-10) Pantoprazole Sodium 40 mg 12/31/19 09:00 01/03/20 09:07 Protonix PO 40 mg DAILY JOSE MANUEL Administration Senna/Docusate Sodium 2 tab 12/31/19 03:17 01/03/20 09:07 Senokot S PO 2 tab BID PRN Administration Constipation Sevelamer Carbonate 2,400 mg 12/31/19 08:00 01/03/20 17:52 Renvela PO Not Given TID-WM JOSE MANUEL - Exam General - other findings: Obesity Eye: anicteric sclera ENT: moist mucosa Neck: supple, no thyromegaly Heart: RRR, no rubs Respiratory - other findings: [place] crackles Gastrointestinal: soft, non-tender Musculoskeletal: no muscle wasting Psychiatric: normal affect, normal behavior Hosp A/P - Plan - Assessment 1. Volume overload 2. Flank pain, improving 3. Ascites/anasarca secondary to diastolic CHF 4. ESRD on HD 5. Left sided inflammatory changes to breast 6. Diastolic CHF exacerbation, NYHA Class C - Plan Appreciate cardiology service input. Continue PRN oxycodone Dialysis per nephrology service for volume removal. Pt needs mammogram as outpt and follow up with oncology.
[2020-01-03] MEDS: Metoprolol Tartrate 50 MG TAB PO SCH (20:52)
[2020-01-03] MEDS: Lidocaine 5% Patch TD SCH (20:52)
[2020-01-03] MEDS: Atorvastatin Calcium 20 MG TAB PO SCH (20:52)
[2020-01-03] MEDS: Insulin Glargine 10 UNITS in Pre-Filled Syringe 1 EACH SC SCH (20:56)
[2020-01-04] MEDS: Levothyroxine Sodium 25 MCG TAB PO SCH (05:04)
[2020-01-04] MEDS: oxyCODONE 5 MG TAB PO PRN ×2 (05:05→12:46)
[2020-01-04 06:29] LABS: Anion Gap 14 mmol/L (10-20); BUN (Urea Nitrogen) 21 mg/dL (9.8-20.1); Calc. Creatinine Clearance 18 mL/min (70-130); Calcium 8.9 mg/dL (7.8-10.44); Carbon Dioxide 30 mmol/L (23-31); Chloride 97 mmol/L (98-107); Estimated GFR-MDRD 11; Glucose 124 mg/dL (80-115); Potassium 4.2 mmol/L (3.5-5.1); Sodium 137 mmol/L (136-145)
[2020-01-04 08:42] LABS: #Eosinphils 0.1 thou/uL (0.0-0.7); #Lymphocytes 1.3 thou/uL (1.20-3.40); #Monocytes 0.8 thou/uL (0.11-0.59); #Neutrophils 6.2 thou/uL (1.40-6.50); %Basophils 0.3 % (0.0-1.0); %Eosinophils 1.2 % (0.0-10.0); %Lymphocytes 15.6 % (21.0-51.0); %Monocytes 9.6 % (0.0-10.0); %Neutrophils 73.3 % (42.0-75.0); Hemoglobin 10.2 g/dL (12.0-16.0); Large Platelets SLIGHT; MDiff Complete? YES; Mean Corpuscular HGB CONC 30.1 g/dL (32.0-36.0); Mean Corpuscular Hemoglobin 29.5 pg (27.0-31.0); Mean Corpuscular Volume 97.9 fL (78.0-98.0); Platelet Count 108 thou/uL (130-400); RBC Distribution Width 15.9 % (11.5-14.5); Red Blood Cell (RBC) Count 3.46 mill/uL (4.20-5.40); White Blood Cell (WBC) Count 8.5 thou/uL (4.8-10.8)
[2020-01-04] MEDS: Sevelamer Carbonate 800 MG TAB PO SCH ×3 (12:21→17:51)
[2020-01-04] MEDS: Heparin 5,000 UNITS/ML VIAL SC SCH ×3 (12:25→20:50)
[2020-01-04] MEDS: Metoprolol Tartrate 50 MG TAB PO SCH ×2 (12:26→20:48)
[2020-01-04] MEDS: Isosorbide Mononitrate (ER) 30 MG TAB PO SCH ×2 (12:26→20:48)
[2020-01-04] MEDS: Amlodipine 5 MG TAB PO SCH (12:34)
[2020-01-04] MEDS: Aspirin Chewable 81 MG TAB PO SCH (12:34)
[2020-01-04] MEDS: Lidocaine Patch Removal 1 EACH TOP SCH (12:46)
--- NOTE | 2020-01-04 19:22 | PDOC.HOSPP ---
- Subjective Encounter Date: 01/04/20 Encounter Time: 09:40 Subjective: Pt seen for followup re: vol overload. Feeling better today. - Objective Vital Signs & Weight: Vital Signs (12 hours) Temp Pulse Resp BP Pulse Ox 01/04/20 16:00 98.5 F 63 20 111/65 97 01/04/20 12:34 63 01/04/20 12:00 100 01/04/20 11:55 97.7 F 63 16 125/73 100 Weight Weight 238 lb 1.588 oz I&O: 01/03/20 01/04/20 01/05/20 06:59 06:59 06:59 Intake Total 400 Balance 400 Result Diagrams: 01/04/20 05:33 01/04/20 05:33 Additional Labs: Accuchecks 01/04/20 01/04/20 01/04/20 16:09 11:59 04:06 POC Glucose 154 H 56 L* 152 H 01/03/20 21:01 POC Glucose 104 Labs and MARs reviewed by vt Hospitalist ROS - Review of Systems Respiratory: denies: cough, shortness of breath, SOB with excertion, pleuritic pain, wheezing Cardiovascular: denies: chest pain, palpitations, orthopnea, paroxysmal noc. dyspnea, edema, light headedness Gastrointestinal: denies: nausea, vomiting, abdominal pain, diarrhea, constipation, melena, hematochezia - Medication Medications: Active Medications Generic Name Dose Route Start Last Admin Trade Name Freq PRN Reason Stop Dose Admin Acetaminophen 650 mg 01/01/20 20:23 01/02/20 18:14 Tylenol PO 650 mg Q4H PRN Administration Headache/Fever or Pain Amlodipine Besylate 5 mg 01/03/20 09:00 01/04/20 12:34 Norvasc PO 5 mg DAILY JOSE MANUEL Administration Aspirin 81 mg 12/31/19 09:00 01/04/20 12:34 Aspirin Chewable PO 81 mg DAILY JOSE MANUEL Administration Atorvastatin Calcium 20 mg 12/31/19 21:00 01/03/20 20:52 Lipitor PO 20 mg HS JOSE MANUEL Administration Heparin Sodium (Porcine) 5,000 units 12/31/19 09:00 01/04/20 16:49 Heparin SC Not Given TID [facility] Insulin Glargine 10 units/ 0.1 mls @ 0 mls/hr 12/31/19 21:00 01/03/20 20:56 Miscellaneous Medication SC Not Given HS JOSE MANUEL Isosorbide Mononitrate 30 mg 12/31/19 09:00 01/04/20 12:26 Imdur Er PO Not Given BID JOSE MANUEL Levothyroxine Sodium 25 mcg 12/31/19 06:00 01/04/20 05:04 Synthroid PO 25 mcg 0600 JOSE MANUEL Administration Lidocaine 2 patch 01/02/20 20:00 01/03/20 20:52 Lidoderm 5% Patch TD 2 patch 2000 JOSE MANUEL Administration Metoprolol Tartrate 50 mg 01/03/20 21:00 01/04/20 12:26 Lopressor PO Not Given BID JOSE MANUEL Miscellaneous Medication 2 each 01/03/20 08:00 01/04/20 12:46 Lidocaine Patch Removal TOP 2 each 0800 JOSE MANUEL Administration Ondansetron HCl 4 mg 12/31/19 03:17 12/31/19 03:41 Zofran IVP 4 mg Q6H PRN Administration Nausea/Vomiting Oxycodone HCl 10 mg 12/31/19 03:17 01/04/20 12:46 Oxycodone Ir PO 10 mg Q4H PRN Administration Moderate to Severe Pain (6-10) Pantoprazole Sodium 40 mg 12/31/19 09:00 01/04/20 12:34 Protonix PO 40 mg DAILY JOSE MANUEL Administration Senna/Docusate Sodium 2 tab 12/31/19 03:17 01/03/20 20:55 Senokot S PO 2 tab BID PRN Administration Constipation Sevelamer Carbonate 2,400 mg 12/31/19 08:00 01/04/20 17:51 Renvela PO 2,400 mg TID-WM JOSE MANUEL Administration - Exam General - other findings: Obese ENT: moist mucosa Neck: supple Heart: RRR, no rubs Respiratory: CTAB Gastrointestinal: soft, non-tender, normal bowel sounds Psychiatric: normal affect, normal behavior Hosp A/P - Plan - Assessment 1. Volume overload 2. Ascites 3. anasarca secondary to diastolic CHF 4. ESRD on HD 5. Left sided inflammatory changes to breast 6. Diastolic CHF exacerbation, NYHA Class C 7. Flank pain, Resolved - Plan Appreciate cardiology service input. Trial PRN tramadol Pt clinically improving with dialysis. Pt needs mammogram as outpt and follow up with oncology.
[2020-01-04] MEDS: Lidocaine 5% Patch TD SCH (20:46)
[2020-01-04] MEDS: traMADol HCl 50 MG TAB PO PRN (20:47)
[2020-01-04] MEDS: Atorvastatin Calcium 20 MG TAB PO SCH (20:48)
[2020-01-04] MEDS: Acetaminophen 325 MG TAB PO PRN (20:48)
[2020-01-04] MEDS: Senokot S 8.6-50 MG TAB PO PRN (20:48)
[2020-01-04] MEDS: Insulin Glargine 10 UNITS in Pre-Filled Syringe 1 EACH SC SCH (20:51)
[2020-01-05] MEDS: Levothyroxine Sodium 25 MCG TAB PO SCH (05:33)
[2020-01-05] MEDS: traMADol HCl 50 MG TAB PO PRN ×2 (05:34→12:52)
[2020-01-05] MEDS: Acetaminophen 325 MG TAB PO PRN (05:34)
[2020-01-05 06:19] LABS: #Basophils 0.1 thou/uL (0.0-0.2); #Eosinphils 0.2 thou/uL (0.0-0.7); #Lymphocytes 1.7 thou/uL (1.20-3.40); #Monocytes 0.8 thou/uL (0.11-0.59); %Basophils 0.8 % (0.0-1.0); %Eosinophils 3.5 % (0.0-10.0); %Lymphocytes 24.5 % (21.0-51.0); %Monocytes 11.9 % (0.0-10.0); %Neutrophils 59.4 % (42.0-75.0); Hemoglobin 10.5 g/dL (12.0-16.0); Mean Corpuscular HGB CONC 30.3 g/dL (32.0-36.0); Mean Corpuscular Volume 98.9 fL (78.0-98.0); Mean Platelet Volume 11.6 fL (7.4-10.4); Platelet Count 100 thou/uL (130-400); RBC Distribution Width 15.8 % (11.5-14.5); Red Blood Cell (RBC) Count 3.49 mill/uL (4.20-5.40); White Blood Cell (WBC) Count 6.8 thou/uL (4.8-10.8)
[2020-01-05 06:26] LABS: Anion Gap 11 mmol/L (10-20); BUN (Urea Nitrogen) 15 mg/dL (9.8-20.1); Calc. Creatinine Clearance 21 mL/min (70-130); Calcium 9.2 mg/dL (7.8-10.44); Carbon Dioxide 32 mmol/L (23-31); Chloride 98 mmol/L (98-107); Estimated GFR-MDRD 13; Glucose 86 mg/dL (80-115); Potassium 4.2 mmol/L (3.5-5.1); Sodium 137 mmol/L (136-145)
[2020-01-05] MEDS: Sevelamer Carbonate 800 MG TAB PO SCH ×3 (08:13→18:02)
[2020-01-05] MEDS: Metoprolol Tartrate 50 MG TAB PO SCH ×2 (08:14→20:51)
[2020-01-05] MEDS: Amlodipine 5 MG TAB PO SCH (08:15)
[2020-01-05] MEDS: Aspirin Chewable 81 MG TAB PO SCH (08:15)
[2020-01-05] MEDS: Isosorbide Mononitrate (ER) 30 MG TAB PO SCH ×2 (08:15→20:51)
[2020-01-05] MEDS: Heparin 5,000 UNITS/ML VIAL SC SCH ×3 (08:16→20:51)
[2020-01-05] MEDS: Lidocaine Patch Removal 1 EACH TOP SCH (08:17)
--- NOTE | 2020-01-05 17:42 | PDOC.HOSPP ---
- Subjective Encounter Date: 01/05/20 Encounter Time: 09:40 Subjective: Pt seen for followup re: volume overload. Feels well today. - Objective Vital Signs & Weight: Vital Signs (12 hours) Temp Pulse Resp BP Pulse Ox 01/05/20 08:15 59 L 01/05/20 08:05 94 L 01/05/20 07:29 97.7 F 59 L 20 122/68 94 L Weight Weight 238 lb 1.588 oz I&O: 01/04/20 01/05/20 01/06/20 06:59 06:59 06:59 Intake Total 400 1000 Balance 400 1000 Result Diagrams: 01/05/20 05:44 01/05/20 05:44 Additional Labs: Accuchecks 01/05/20 01/05/20 01/05/20 16:04 10:55 04:56 POC Glucose 116 H 127 H 95 01/04/20 19:18 POC Glucose 144 H Labs and MARs reviewed by mi Hospitalist ROS - Review of Systems Gastrointestinal: denies: nausea, vomiting, abdominal pain, diarrhea, constipation, melena, hematochezia Skin: denies: rash, lesions, yasmin, bruising - Medication Medications: Active Medications Generic Name Dose Route Start Last Admin Trade Name Freq PRN Reason Stop Dose Admin Acetaminophen 650 mg 01/01/20 20:23 01/05/20 05:34 Tylenol PO 650 mg Q4H PRN Administration Headache/Fever or Pain Amlodipine Besylate 5 mg 01/03/20 09:00 01/05/20 08:15 Norvasc PO 5 mg DAILY JOSE MANUEL Administration Aspirin 81 mg 12/31/19 09:00 01/05/20 08:15 Aspirin Chewable PO 81 mg DAILY JOSE MANUEL Administration Atorvastatin Calcium 20 mg 12/31/19 21:00 01/04/20 20:48 Lipitor PO 20 mg HS JOSE MANUEL Administration Heparin Sodium (Porcine) 5,000 units 12/31/19 09:00 01/05/20 15:22 Heparin SC Not Given TID [facility] Insulin Glargine 10 units/ 0.1 mls @ 0 mls/hr 12/31/19 21:00 01/04/20 20:51 Miscellaneous Medication SC Not Given HS JOSE MANUEL Isosorbide Mononitrate 30 mg 12/31/19 09:00 01/05/20 08:15 Imdur Er PO 30 mg BID JOSE MANUEL Administration Levothyroxine Sodium 25 mcg 12/31/19 06:00 01/05/20 05:33 Synthroid PO 25 mcg 0600 JOSE MANUEL Administration Lidocaine 2 patch 01/02/20 20:00 01/04/20 20:46 Lidoderm 5% Patch TD 2 patch 2000 JOSE MANUEL Administration Metoprolol Tartrate 50 mg 01/03/20 21:00 01/05/20 08:14 Lopressor PO 50 mg BID JOSE MANUEL Administration Miscellaneous Medication 2 each 01/03/20 08:00 01/05/20 08:17 Lidocaine Patch Removal TOP 2 each 08 JOSE MANUEL Administration Ondansetron HCl 4 mg 12/31/19 03:17 12/31/19 03:41 Zofran IVP 4 mg Q6H PRN Administration Nausea/Vomiting Pantoprazole Sodium 40 mg 12/31/19 09:00 01/05/20 08:14 Protonix PO 40 mg DAILY JOSE MANUEL Administration Senna/Docusate Sodium 2 tab 12/31/19 03:17 01/04/20 20:48 Senokot S PO 2 tab BID PRN Administration Constipation Sevelamer Carbonate 2,400 mg 12/31/19 08:00 01/05/20 12:54 Renvela PO 2,400 mg TID-WM JOSE MANUEL Administration Tramadol HCl 50 mg 01/04/20 19:22 01/05/20 12:52 Ultram PO 50 mg Q6H PRN Administration Pain 4-6 - Exam General Appearance: awake alert Eye: anicteric sclera ENT: moist mucosa Neck: supple, no thyromegaly Heart: RRR Respiratory: no wheezes, no ronchi Respiratory - other findings: crackles+ Psychiatric: normal affect, normal behavior Hosp A/P - Plan - Assessment 1. Volume overload 2. Anasarca 3. Ascites 4. ESRD on HD 5. Left sided inflammatory changes to breast 6. Diastolic CHF exacerbation, NYHA Class C - Plan Pain improved Pt clinically improving with dialysis. Pt needs mammogram as outpt and follow up with oncology.
[2020-01-05] MEDS: Lidocaine 5% Patch TD SCH (20:47)
[2020-01-05] MEDS: Atorvastatin Calcium 20 MG TAB PO SCH (20:51)
[2020-01-05] MEDS: Insulin Glargine 10 UNITS in Pre-Filled Syringe 1 EACH SC SCH (20:52)
[2020-01-06] MEDS: Levothyroxine Sodium 25 MCG TAB PO SCH (05:26)
[2020-01-06] MEDS: Isosorbide Mononitrate (ER) 30 MG TAB PO SCH ×2 (08:29→21:12)
[2020-01-06] MEDS: Sevelamer Carbonate 800 MG TAB PO SCH ×3 (08:29→16:36)
[2020-01-06] MEDS: Metoprolol Tartrate 50 MG TAB PO SCH ×2 (08:29→21:12)
[2020-01-06] MEDS: Aspirin Chewable 81 MG TAB PO SCH (08:29)
[2020-01-06] MEDS: Amlodipine 5 MG TAB PO SCH (08:29)
[2020-01-06] MEDS: Lidocaine Patch Removal 1 EACH TOP SCH (08:33)
[2020-01-06] MEDS: Heparin 5,000 UNITS/ML VIAL SC SCH ×3 (08:59→21:23)
[2020-01-06] MEDS: traMADol HCl 50 MG TAB PO PRN (09:40)
[2020-01-06 11:39] LABS: #Eosinphils 0.2 thou/uL (0.0-0.7); #Lymphocytes 1.5 thou/uL (1.20-3.40); #Monocytes 0.7 thou/uL (0.11-0.59); #Neutrophils 5.6 thou/uL (1.40-6.50); %Basophils 0.2 % (0.0-1.0); %Eosinophils 2.5 % (0.0-10.0); %Lymphocytes 18.8 % (21.0-51.0); %Monocytes 8.7 % (0.0-10.0); %Neutrophils 69.8 % (42.0-75.0); Hemoglobin 11.6 g/dL (12.0-16.0); Mean Corpuscular HGB CONC 30.1 g/dL (32.0-36.0); Mean Corpuscular Hemoglobin 29.6 pg (27.0-31.0); Mean Corpuscular Volume 98.6 fL (78.0-98.0); Mean Platelet Volume 12.1 fL (7.4-10.4); Platelet Count 98 thou/uL (130-400)
--- NOTE | 2020-01-06 20:53 | PDOC.HOSPP ---
- Subjective Encounter Date: 01/06/20 Encounter Time: 09:00 Subjective: Pt seen for followup for fluid overload. Feels much better today. - Objective Vital Signs & Weight: Weight Weight 238 lb 1.588 oz I&O: 01/05/20 01/06/20 01/07/20 06:59 06:59 06:59 Intake Total 1000 Balance 1000 Result Diagrams: 01/06/20 11:17 01/05/20 05:44 Additional Labs: Accuchecks 01/06/20 01/06/20 11:39 04:16 POC Glucose 110 105 Labs and MARs reviewed by ma Hospitalist ROS - Review of Systems Cardiovascular: denies: chest pain, palpitations, orthopnea, paroxysmal noc. dyspnea, edema, light headedness Gastrointestinal: denies: nausea, vomiting, abdominal pain, diarrhea, constipation, melena, hematochezia - Medication Medications: Active Medications Generic Name Dose Route Start Last Admin Trade Name Freq PRN Reason Stop Dose Admin Acetaminophen 650 mg 01/01/20 20:23 01/05/20 05:34 Tylenol PO 650 mg Q4H PRN Administration Headache/Fever or Pain Amlodipine Besylate 5 mg 01/03/20 09:00 01/06/20 08:29 Norvasc PO 5 mg DAILY JOSE MANUEL Administration Aspirin 81 mg 12/31/19 09:00 01/06/20 08:29 Aspirin Chewable PO 81 mg DAILY JOSE MANUEL Administration Atorvastatin Calcium 20 mg 12/31/19 21:00 01/05/20 20:51 Lipitor PO 20 mg HS JOSE MANUEL Administration Heparin Sodium (Porcine) 5,000 units 12/31/19 09:00 01/06/20 16:36 Heparin SC Not Given TID [facility] Insulin Glargine 10 units/ 0.1 mls @ 0 mls/hr 12/31/19 21:00 01/05/20 20:52 Miscellaneous Medication SC Not Given HS JOSE MANUEL Isosorbide Mononitrate 30 mg 12/31/19 09:00 01/06/20 08:29 Imdur Er PO 30 mg BID JOSE MANUEL Administration Levothyroxine Sodium 25 mcg 12/31/19 06:00 01/06/20 05:26 Synthroid PO 25 mcg 0600 JOSE MANUEL Administration Lidocaine 2 patch 01/02/20 20:00 01/05/20 20:47 Lidoderm 5% Patch TD 2 patch 2000 JOSE MANUEL Administration Metoprolol Tartrate 50 mg 01/03/20 21:00 01/06/20 08:29 Lopressor PO 50 mg BID JOSE MANUEL Administration Miscellaneous Medication 2 each 01/03/20 08:00 01/06/20 08:33 Lidocaine Patch Removal TOP 2 each 0800 JOSE MANUEL Administration Ondansetron HCl 4 mg 12/31/19 03:17 12/31/19 03:41 Zofran IVP 4 mg Q6H PRN Administration Nausea/Vomiting Pantoprazole Sodium 40 mg 12/31/19 09:00 01/06/20 08:29 Protonix PO 40 mg DAILY JOSE MANUEL Administration Senna/Docusate Sodium 2 tab 12/31/19 03:17 01/04/20 20:48 Senokot S PO 2 tab BID PRN Administration Constipation Sevelamer Carbonate 2,400 mg 12/31/19 08:00 01/06/20 16:36 Renvela PO Not Given TID-WM [facility] Tramadol HCl 50 mg 01/04/20 19:22 01/06/20 09:40 Ultram PO 50 mg Q6H PRN Administration Pain 4-6 - Exam General Appearance: awake alert General - other findings: Obese Eye: anicteric sclera ENT: normocephalic atraumatic Neck: supple Heart: RRR, no rubs Respiratory - other findings: Bilateral crackles Gastrointestinal: soft, non-tender Extremities: 1+ LE edema Musculoskeletal: normal tone Psychiatric: normal affect, normal behavior Hosp A/P - Plan - Assessment 1. Volume overload 2. Ascites 3. Anasarca 4. Left sided inflammatory changes to breast 5. ESRD on HD 6. Diastolic CHF exacerbation, NYHA Class C - Plan Pt clinically improved with dialysis. Pt needs mammogram as outpt and follow up with oncology. Dispo: Inpt Rehab, screen ordered.
[2020-01-06] MEDS: Atorvastatin Calcium 20 MG TAB PO SCH (21:12)
[2020-01-06] MEDS: Senokot S 8.6-50 MG TAB PO PRN (21:12)
[2020-01-06] MEDS: Lidocaine 5% Patch TD SCH (21:12)
[2020-01-06] MEDS: Insulin Glargine 10 UNITS in Pre-Filled Syringe 1 EACH SC SCH (21:21)
[2020-01-07] MEDS: Levothyroxine Sodium 25 MCG TAB PO SCH (06:17)
[2020-01-07] MEDS: traMADol HCl 50 MG TAB PO PRN ×2 (08:29→16:27)
[2020-01-07] MEDS: Sevelamer Carbonate 800 MG TAB PO SCH ×3 (08:30→16:28)
[2020-01-07] MEDS: Amlodipine 5 MG TAB PO SCH (08:30)
[2020-01-07] MEDS: Aspirin Chewable 81 MG TAB PO SCH (08:31)
[2020-01-07] MEDS: Metoprolol Tartrate 50 MG TAB PO SCH (08:31)
[2020-01-07] MEDS: Isosorbide Mononitrate (ER) 30 MG TAB PO SCH (08:32)
[2020-01-07] MEDS: Heparin 5,000 UNITS/ML VIAL SC SCH ×2 (08:33→16:09)
[2020-01-07] MEDS: Lidocaine Patch Removal 1 EACH TOP SCH (08:33)
[2020-01-07 15:13] LABS: Smooth Muscle Total ABS 14 Units (0-19)
--- NOTE | 2020-01-07 15:23 | PDOC.MOPN ---
Interval History: doing better, OOB in chair today - Vital Signs Vital Signs: Vital Signs (12 hours) Temp Pulse Resp BP Pulse Ox 01/07/20 08:30 65 01/07/20 08:00 65 L 01/07/20 07:13 98.7 F 65 20 128/67 91 L Weight Weight 238 lb 1.588 oz - Physical Exam General: Alert, Oriented x3, No acute distress Lungs: Clear to auscultation, Normal air movement Cardiovascular: Regular rate, Normal S1, Normal S2, No murmurs, Gallops, Rubs Abdomen: Other Neurological: Normal speech - Labs Result Diagrams: 01/06/20 11:17 01/05/20 05:44 Lab results: Laboratory Results - last 24 hr 01/07/20 11:53: POC Glucose 91 01/07/20 05:39: POC Glucose 96 01/06/20 21:23: POC Glucose 90 01/01/20 06:11: Smooth Muscle Ab Titer 14 Status: lab reviewed by me A/P - Problem (1) Swelling of breast Current Visit: Yes Code(s): N63.0 - UNSPECIFIED LUMP IN UNSPECIFIED BREAST Status: Acute (2) Anemia Current Visit: No Code(s): D64.9 - ANEMIA, UNSPECIFIED Status: Acute (3) ESRD (end stage renal disease) Current Visit: No Code(s): N18.6 - END STAGE RENAL DISEASE Status: Acute (4) Fluid overload Current Visit: No Code(s): E87.70 - FLUID OVERLOAD, UNSPECIFIED Status: Acute - Plan Plan: Remains here while awaits approval for rehab Left breast swelling slightly improved Dr. Jalloh consulted for opinion while await rehab
[2020-01-07 16:33] VITALS: BP 123/73; TEMP 98.8
[2020-01-07 17:25] LABS: ANA Symphony (Qualitative) Negative (Negative); ANA Symphony (Quantitative) 0.6 Ratio (< 0.7 Negative); EliA Vaculitis New Method **** NEW METHOD ****; Mitochondrial Ab 1.6 U/mL (<4 Negative); dsDNA IgG Antibody 1.6 IU/mL (<10 Negative)
--- NOTE | 2020-01-08 04:58 | DIS ---
DATE OF ADMISSION: 12/31/2019 DATE OF DISCHARGE: 01/07/2020 PRIMARY CARE PROVIDER: Tanisha Luo M.D. DISCHARGE DIAGNOSES: 1. Diastolic congestive heart failure exacerbation, [place] Heart Association class III. 2. Volume overload. 3. Ascites. 4. Anasarca. 5. Left-sided inflammatory changes to breast. 6. Physical deconditioning. CONDITION OF THE PATIENT ON THE DAY OF DISCHARGE: Stable. I assessed Ms. Nunn on the day of discharge. She denies any chest pain or shortness of breath. Vital signs are stable. S1 and S2 are heard, regular. Lungs are clear to auscultation bilaterally. CONSULTATIONS DURING THIS HOSPITALIZATION: 1. Gastroenterology Dr. Mera. 2. Cardiology Dr. Hager. 3. Oncology Ms. Serena Montes [employer] OFFICER. 4. Nephrology Dr. Darnell Monsivais. HOSPITAL COURSE: Ms. Nunn is a pleasant 69-year-old lady, who was admitted to [facility] on December 31, 2019 for right-sided flank pain of unclear etiology. She was also found to have anasarca and possible cirrhosis. She received pain medications. She was seen by Gastroenterology Service. She underwent paracentesis on January 01, 2020, under ultrasound guidance. Pathology report indicates that no malignant cells were identified. Her ascites was in the context of end-stage renal disease and also with a history of chronic diastolic heart failure. She had tests sent during this hospitalization to look into the etiology of cirrhosis. She needs to follow up with Gastroenterology Service as outpatient for the results. She was also seen by Cardiology Service. 2D echocardiogram showed left ventricular ejection fraction of 60% to 65%, paradoxical septal motion compatible with right heart overload, [id number] aortic stenosis, and severe tricuspid regurgitation. She had markedly elevated pulmonary artery pressure. She underwent maintenance hemodialysis during this hospitalization with improvement in her symptoms. She has been advised to closely follow up with her liner reroll tender. She was also physically deconditioned. She is being discharged to [facility] for further management. POST-ACUTE CARE FOLLOWUP: With primary care provider in one week, with her liner reroll tender in one week, with gastroenterology, Dr. Mera in 2 weeks, and with [facility] in 10 days. Please note that the patient had left-sided inflammatory breast changes. Oncology Service recommends mammogram as outpatient and followup with oncology clinic. DISCHARGE MEDICATIONS: 1. Amlodipine 5 mg daily. 2. Aspirin 81 mg daily. 3. Lipitor 20 mg at bedtime. 4. Lantus insulin 10 units at bedtime. 5. Isosorbide mononitrate 30 mg 2 times a day. 6. Levothyroxine 50 mcg daily. 7. Lidocaine 5% patch, two patches every 24 hours. 8. Losartan 25 mg daily. 9. Metoprolol tartrate 50 mg 2 times a day. 10. Protonix 40 mg daily. 11. Lyrica 75 mg 2 times a day. 12. Sertraline 50 mg daily. 13. Renvela 2400 mg 3 times a day. 14. Senokot two tablets 2 times a day as needed. 15. Tramadol 50 mg every 6 hours as needed. DISCHARGE DESTINATION: [facility]. ACTIVITY: As tolerated. DIET: Diabetic, heart healthy, and low-sodium. TIME SPENT: Total amount of time spent coordinating this discharge: 33 minutes. Many thanks for allowing me to participate in your patient's care. Please feel free to contact me with any questions or concerns. Job ID: [id number]
== END 2020-01-07 19:02 | DRG 432 ==
LOC: ERS 00:48 → OBSVTOIN 02:21 → T4-A 02:21 → INTOOBSV 02:21 → T4-A 02:51
PROVIDERS: ADMIT Internal Medicine; ATTEND Internal Medicine
PROC: 0W9G3ZZ Drainage of Peritoneal Cavity, Percutaneous Approach (ICD-10-PCS; principal; 2020-01-01)
PROC: 5A1D70Z Performance of Urinary Filtration, Intermittent, Less than 6 Hours Per Day (ICD-10-PCS; 2020-01-03)
DX: K74.60 Unspecified cirrhosis of liver (principal); I50.33 Acute on chronic diastolic (congestive) heart failure; N18.6 End stage renal disease; I13.2 Hypertensive heart and chronic kidney disease with heart failure and with stage 5 chronic kidney disease, or end stage renal disease; R18.8 Other ascites; M54.5 Low back pain; G89.29 Other chronic pain; E11.22 Type 2 diabetes mellitus with diabetic chronic kidney disease; E78.00 Pure hypercholesterolemia, unspecified; E78.5 Hyperlipidemia, unspecified; E66.9 Obesity, unspecified; I27.20 Pulmonary hypertension, unspecified; I25.10 Atherosclerotic heart disease of native coronary artery without angina pectoris; K21.9 Gastro-esophageal reflux disease without esophagitis; N63.20 Unspecified lump in the left breast, unspecified quadrant; R50.9 Fever, unspecified; Z88.5 Allergy status to narcotic agent; Z79.899 Other long term (current) drug therapy; Z99.2 Dependence on renal dialysis; Z79.4 Long term (current) use of insulin; Z68.38 Body mass index [BMI] 38.0-38.9, adult
CPT/HCPCS: 36415; 36416; 49083; 80048; 80053; 80074; 82042; 82103; 82104; 82105; 82728; 83516; 83540; 83550; 83605; 83880; 84145; 84157; 84478; 85025; 85060; 85610; 85730; 86038; 86225; 87040; 88112; 88305; 89051; 90935; 93306; 94760; 96374; G0257; J1644; J1815; J2001; J2405; J3010

== ENCOUNTER 2021-09-23 14:31 | Outpatient (CLI) | payer MEDICARE, MEDICAID | END 2021-09-23 14:32 | disposition home or self-care (01) | LOC: BICCT 14:31 | PROVIDERS: ATTEND Internal Medicine | DX: R91.1 Solitary pulmonary nodule (principal); G95.89 Other specified diseases of spinal cord | CPT/HCPCS: 71250 ==

== ENCOUNTER 2024-02-27 10:54 | Inpatient (IN) | payer OTHER ==
[2024-02-27 12:11] LABS: INR-International Normal Ratio 1.3; PTT 37.5 sec (22.9-36.1)
[2024-02-27 12:24] LABS: ALT (SGPT) 12 U/L (8-55); AST (SGOT) 16 U/L (5-34); Albumin 3.8 g/dL (3.4-4.8); Alkaline Phosphatase 56 U/L (40-110); Anion Gap 23 mmol/L (10-20); BUN (Urea Nitrogen) 35 mg/dL (9.8-20.1); CK (CPK) 53 U/L (29-168); Calc. Creatinine Clearance 0 mL/min (70-130); Calcium 10.1 mg/dL (7.8-10.44); Carbon Dioxide 26 mmol/L (23-31); Chloride 97 mmol/L (98-107); Estimated GFR 5; Globulin 3.5 g/dL (2.4-3.5); Glucose 70 mg/dL (83-110); Lipase 26 U/L (8-78); Magnesium 2.3 mg/dL (1.6-2.6); Potassium 4.7 mmol/L (3.5-5.1); Protein, Total 7.3 g/dL (5.8-8.1); Sodium 141 mmol/L (136-145)
[2024-02-27 12:44] LABS: Anisocytosis SLIGHT = 6-15 cells HPF (0-5); Platelet Adequacy Comment Significant Decrease; Polychromasia SLIGHT = 2-3 cells HPF (0-2); Target Cells SLIGHT = 2-5 cells HPF (0-1)
[2024-02-27 12:45] LABS: #Basophils 0.04 10x3/uL (0.0-0.2); %Basophils 0.6 % (0.0-1.0); %Eosinophils 0.6 % (0.0-10.0); %Lymphocytes 17.3 % (21.0-51.0); %Neutrophils 72.3 % (42.0-75.0); Hematocrit 40.6 % (36.0-47.0); Hemoglobin 12.9 g/dL (12.0-16.0); Mean Corpuscular HGB CONC 31.8 g/dL (32.0-36.0); Mean Corpuscular Hemoglobin 31.7 pg (27.0-31.0); Mean Corpuscular Volume 99.8 fL (78.0-98.0); Mean Platelet Volume 14.2 fL (7.4-10.4); Platelet Count 82 10x3/uL (130-400); RBC Distribution Width 17.2 % (11.5-14.5); Red Blood Cell (RBC) Count 4.07 mill/uL (4.20-5.40)
[2024-02-27 12:47] LABS: Troponin I 0.113 ng/mL (< 0.028)
[2024-02-27 13:00] LABS: pH (venous) 7.401 (7.32-7.43)
[2024-02-27 13:01] LABS: Actual Bicarbonate (HCO3v) 28.2 mEq/L (22-28); Base Excess 2.7 mEq/L (-2.0 to +3.0); Chloride (VBG) 98 mmol/L (98-106); Hematocrit-VBG 40 % (36.0-47.0); Hemoglobin (Hb) 13.5 g/dL (11.7-16.1); Potassium (VBG) 5.62 mmol/L (3.70-5.30); Sodium 141 mmol/L (133-146)
[2024-02-27 13:02] LABS: Calcium, Ionized (venous) 1.01 mmol/L (1.16-1.32)
[2024-02-27 13:22] LABS: Influenza A by NAA Not Detected (NotDetected); Influenza B by NAA Not Detected (NotDetected); SARS-CoV-2 NAA Rapid Test Not Detected (NotDetected)
[2024-02-27] MEDS ORDERED: Aspirin Chewable 81 MG TAB ONE (14:11)
[2024-02-27] MEDS ORDERED: Ipratropium/Albuterol 3 ML NEB NEB PRN (14:46)
[2024-02-27] MEDS ORDERED: Dextrose 5% in Water 1,000 ML IV PRN (14:57)
[2024-02-27] MEDS ORDERED: Glucagon 1 MG/ML KIT IM PRN (14:57)
[2024-02-27] MEDS ORDERED: Dextrose 50% Abboject 50 ML SYRINGE SLOW IVP PRN (14:57)
[2024-02-27] MEDS ORDERED: Insulin Lispro 100 UNIT/ML 10 ML VIAL SC PRN (15:11)
[2024-02-27 15:58] LABS: Troponin I 0.098 ng/mL (< 0.028)
[2024-02-27 16:16] LABS: HBSAB Concentration 20.85 mIU/mL; HBsAg Index 0.23 S/CO (0-0.99); Hep B Core Total Ab NONREACTIVE (NonReactive); Hep B Core Total Index 0.11 S/CO (0-0.79); Hep B Surf AB REACTIVE (NonReactive); Hep B Surf Ag NONREACTIVE S/CO (NonReactive); Hep C IgG Ab NONREACTIVE S/CO (NonReactive)
[2024-02-27] MEDS: Acetaminophen 325 MG TAB PO SCH (18:23)
[2024-02-27] MEDS: cefTRIAXone\\ROCEPHIN 1 GM in Sodium Chloride 0.9% 100 ML IVPB SCH (18:23)
[2024-02-27] MEDS: Nystatin Cream 30 GM TUBE TOP SCH (18:28)
[2024-02-27 19:22] VITALS: BMI 38.4
[2024-02-27 19:53] LABS: Troponin I 0.095 ng/mL (< 0.028)
[2024-02-27] MEDS: Atorvastatin Calcium 20 MG TAB PO SCH (21:18)
[2024-02-27] MEDS: Doxycycline 100 MG in Sodium Chloride 0.9% 100 ML IVPB SCH (21:18)
[2024-02-27] MEDS: Flecainide 50 MG TAB PO SCH (21:18)
[2024-02-27] MEDS: Apixaban 2.5 MG TAB PO SCH (21:18)
[2024-02-28 04:32] LABS: #Basophils 0.04 10x3/uL (0.0-0.2); %Basophils 0.7 % (0.0-1.0); %Eosinophils 2.7 % (0.0-10.0); %Lymphocytes 24.4 % (21.0-51.0); %Monocytes 15.4 % (0.0-10.0); %Neutrophils 56.6 % (42.0-75.0); Hematocrit 37.6 % (36.0-47.0); Hemoglobin 11.8 g/dL (12.0-16.0); Mean Corpuscular HGB CONC 31.4 g/dL (32.0-36.0); Mean Corpuscular Hemoglobin 32.1 pg (27.0-31.0); Mean Corpuscular Volume 102.2 fL (78.0-98.0); Platelet Count 82 10x3/uL (130-400); RBC Distribution Width 16.7 % (11.5-14.5); Red Blood Cell (RBC) Count 3.68 mill/uL (4.20-5.40)
[2024-02-28 04:41] LABS: ALT (SGPT) 10 U/L (8-55); AST (SGOT) 12 U/L (5-34); Albumin 3.3 g/dL (3.4-4.8); Alkaline Phosphatase 52 U/L (40-110); Anion Gap 17 mmol/L (10-20); BUN (Urea Nitrogen) 27 mg/dL (9.8-20.1); Bilirubin, Total 0.8 mg/dL (0.2-1.2); Calc. Creatinine Clearance 11 mL/min (70-130); Calcium 9.3 mg/dL (7.8-10.44); Carbon Dioxide 26 mmol/L (23-31); Chloride 102 mmol/L (98-107); Estimated GFR 6; Globulin 3.1 g/dL (2.4-3.5); Glucose 111 mg/dL (83-110); Protein, Total 6.4 g/dL (5.8-8.1); Sodium 141 mmol/L (136-145)
[2024-02-28] MEDS: Levothyroxine Sodium 25 MCG TAB PO SCH (05:20)
[2024-02-28] MEDS ORDERED: Albumin 25% 25 GM (100 mL) BOT IVPB PRN (09:39)
[2024-02-28] MEDS: Sertraline 100 MG TAB PO SCH (14:30)
[2024-02-28] MEDS: Pantoprazole DR 40 MG TAB PO SCH (14:30)
[2024-02-29 04:49] LABS: #Basophils Less than 0.03 10x3/uL (0.0-0.2); %Basophils 0.3 % (0.0-1.0); %Eosinophils 1.4 % (0.0-10.0); %Lymphocytes 20.2 % (21.0-51.0); %Monocytes 13.6 % (0.0-10.0); %Neutrophils 64.2 % (42.0-75.0); Hematocrit 38.4 % (36.0-47.0); Hemoglobin 12.1 g/dL (12.0-16.0); Mean Corpuscular HGB CONC 31.8 g/dL (32.0-36.0); Mean Corpuscular Hemoglobin 32.7 pg (27.0-31.0); Mean Corpuscular Volume 102.7 fL (78.0-98.0); Mean Platelet Volume 13.6 fL (7.4-10.4); Platelet Count 70 10x3/uL (130-400); RBC Distribution Width 16.5 % (11.5-14.5); Red Blood Cell (RBC) Count 3.67 mill/uL (4.20-5.40)
[2024-02-29 04:56] LABS: ALT (SGPT) 11 U/L (8-55); AST (SGOT) 14 U/L (5-34); Alkaline Phosphatase 51 U/L (40-110); Anion Gap 16 mmol/L (10-20); BUN (Urea Nitrogen) 18 mg/dL (9.8-20.1); Calc. Creatinine Clearance 14 mL/min (70-130); Calcium 9.6 mg/dL (7.8-10.44); Carbon Dioxide 27 mmol/L (23-31); Chloride 99 mmol/L (98-107); Estimated GFR 8; Glucose 133 mg/dL (83-110); Potassium 4.1 mmol/L (3.5-5.1); Sodium 138 mmol/L (136-145)
[2024-02-29] MEDS: Artificial Tear Ophth Sol 15 ML BOT EA EYE PRN (18:14)
[2024-03-01] MEDS ORDERED: Levothyroxine Sodium 25 MCG TAB ONE (06:00)
[2024-03-01] MEDS ORDERED: Acetaminophen 325 MG TAB ONE ×3 (06:00→17:15)
[2024-03-01 07:45] LABS: #Basophils Less than 0.03 10x3/uL (0.0-0.2); %Basophils 0.3 % (0.0-1.0); %Eosinophils 2.9 % (0.0-10.0); %Lymphocytes 25.5 % (21.0-51.0); %Monocytes 13.2 % (0.0-10.0); %Neutrophils 57.9 % (42.0-75.0); Hematocrit 38.1 % (36.0-47.0); Hemoglobin 11.9 g/dL (12.0-16.0); Mean Corpuscular HGB CONC 31.2 g/dL (32.0-36.0); Mean Corpuscular Hemoglobin 32.4 pg (27.0-31.0); Mean Corpuscular Volume 103.8 fL (78.0-98.0); Platelet Count 72 10x3/uL (130-400); RBC Distribution Width 16.5 % (11.5-14.5); Red Blood Cell (RBC) Count 3.67 mill/uL (4.20-5.40)
[2024-03-01 08:13] LABS: ALT (SGPT) 11 U/L (8-55); AST (SGOT) 13 U/L (5-34); Albumin 3.9 g/dL (3.4-4.8); Alkaline Phosphatase 50 U/L (40-110); Anion Gap 16 mmol/L (10-20); BUN (Urea Nitrogen) 28 mg/dL (9.8-20.1); Bilirubin, Total 0.9 mg/dL (0.2-1.2); Calc. Creatinine Clearance 11 mL/min (70-130); Calcium 9.7 mg/dL (7.8-10.44); Carbon Dioxide 27 mmol/L (23-31); Chloride 100 mmol/L (98-107); Estimated GFR 5; Glucose 83 mg/dL (83-110); Potassium 4.5 mmol/L (3.5-5.1); Protein, Total 6.9 g/dL (5.8-8.1); Sodium 138 mmol/L (136-145)
[2024-03-01] MEDS ORDERED: Sertraline 100 MG TAB ONE (13:55)
[2024-03-01] MEDS ORDERED: Apixaban 2.5 MG TAB ONE (13:55)
[2024-03-01] MEDS ORDERED: Pantoprazole DR 40 MG TAB ONE (13:55)
[2024-03-01] MEDS ORDERED: Flecainide 50 MG TAB ONE (13:55)
[2024-03-01] MEDS ORDERED: cefTRIAXone (ROCEPHIN) 1 GM VIAL ONE (16:00)
[2024-03-02 08:28] LABS: Anion Gap 18 mmol/L (10-20); BUN (Urea Nitrogen) 23 mg/dL (9.8-20.1); Calc. Creatinine Clearance 14 mL/min (70-130); Calcium 9.7 mg/dL (7.8-10.44); Carbon Dioxide 27 mmol/L (23-31); Chloride 98 mmol/L (98-107); Estimated GFR 7; Glucose 114 mg/dL (83-110); Potassium 4.5 mmol/L (3.5-5.1); Sodium 138 mmol/L (136-145)
[2024-03-02 08:37] LABS: Hemoglobin 12.1 g/dL (12.0-16.0); Mean Corpuscular HGB CONC 31.8 g/dL (32.0-36.0); Mean Corpuscular Volume 103.5 fL (78.0-98.0); Platelet Count 70 10x3/uL (130-400); RBC Distribution Width 16.5 % (11.5-14.5); Red Blood Cell (RBC) Count 3.67 mill/uL (4.20-5.40)
[2024-03-02 09:44] LABS: Anisocytosis SLIGHT = 6-15 cells HPF (0-5); Burr Cells SLIGHT = 2-5 cells HPF (0-1); Eosinophils 1 % (0-10); Large Platelets 8.8 % (0-5); Lymphocytes 20 % (21-51); Macrocytosis SLIGHT = 6-15 cells HPF (0-5); Monocytes 7 % (0-10); Neutrophil 73 % (42-75); Platelet Adequacy Comment Platelets Decreased; Polychromasia SLIGHT = 2-3 cells HPF (0-2); Smudge Cells 4.9 %
[2024-03-02] MEDS: Insulin Lispro 100 UNIT/ML 10 ML VIAL SC PRN (12:30)
[2024-03-04 05:29] LABS: Anion Gap 21 mmol/L (10-20); BUN (Urea Nitrogen) 41 mg/dL (9.8-20.1); Calc. Creatinine Clearance 10 mL/min (70-130); Calcium 10.2 mg/dL (7.8-10.44); Carbon Dioxide 22 mmol/L (23-31); Chloride 101 mmol/L (98-107); Estimated GFR 5; Glucose 96 mg/dL (83-110); Phosphorus 5.8 mg/dL (2.3-4.7); Potassium 4.9 mmol/L (3.5-5.1); Sodium 139 mmol/L (136-145)
[2024-03-04] MEDS: Sevelamer Carbonate 800 MG TAB PO SCH (10:52)
[2024-03-04] MEDS: Calcitriol 0.25 MCG CAP PO SCH (14:22)
[2024-03-04] MEDS: cefTRIAXone\\ROCEPHIN 2 GM in Sodium Chloride 0.9% 100 ML IVPB SCH (14:23)
[2024-03-05 05:29] LABS: #Basophils 0.03 10x3/uL (0.0-0.2); %Basophils 0.4 % (0.0-1.0); %Eosinophils 1.8 % (0.0-10.0); %Lymphocytes 15.3 % (21.0-51.0); %Monocytes 11.8 % (0.0-10.0); %Neutrophils 70.4 % (42.0-75.0); Hematocrit 38.7 % (36.0-47.0); Mean Corpuscular Hemoglobin 31.4 pg (27.0-31.0); Mean Corpuscular Volume 101.3 fL (78.0-98.0); Platelet Count 78 10x3/uL (130-400); RBC Distribution Width 16.2 % (11.5-14.5); Red Blood Cell (RBC) Count 3.82 mill/uL (4.20-5.40)
[2024-03-05 05:50] LABS: Anion Gap 18 mmol/L (10-20); BUN (Urea Nitrogen) 25 mg/dL (9.8-20.1); Calc. Creatinine Clearance 14 mL/min (70-130); Calcium 9.8 mg/dL (7.8-10.44); Carbon Dioxide 27 mmol/L (23-31); Chloride 99 mmol/L (98-107); Estimated GFR 7; Glucose 80 mg/dL (83-110); Potassium 4.3 mmol/L (3.5-5.1); Sodium 140 mmol/L (136-145)
[2024-03-06 11:17] VITALS: BMI 39.4
[2024-03-06 17:26] VITALS: BP 119/66; TEMP 97.3
== END 2024-03-06 19:47 | DRG 291 ==
LOC: ERS 10:54 → 2NO 13:52 → OBSVTOIN 02-28 13:33
PROVIDERS: ADMIT Internal Medicine; ATTEND Internal Medicine
PROC: 5A1D70Z Performance of Urinary Filtration, Intermittent, Less than 6 Hours Per Day (ICD-10-PCS; principal; 2024-02-27)
DX: I13.2 Hypertensive heart and chronic kidney disease with heart failure and with stage 5 chronic kidney disease, or end stage renal disease (principal); I50.43 Acute on chronic combined systolic (congestive) and diastolic (congestive) heart failure; J96.01 Acute respiratory failure with hypoxia; N18.6 End stage renal disease; L03.115 Cellulitis of right lower limb; L03.116 Cellulitis of left lower limb; Z66 Do not resuscitate; I48.0 Paroxysmal atrial fibrillation; R79.89 Other specified abnormal findings of blood chemistry; I42.0 Dilated cardiomyopathy; Z68.39 Body mass index [BMI] 39.0-39.9, adult; I35.0 Nonrheumatic aortic (valve) stenosis; E03.9 Hypothyroidism, unspecified; E11.22 Type 2 diabetes mellitus with diabetic chronic kidney disease; R91.1 Solitary pulmonary nodule; I27.20 Pulmonary hypertension, unspecified; J44.9 Chronic obstructive pulmonary disease, unspecified; F32.A Depression, unspecified; E66.9 Obesity, unspecified; Z88.5 Allergy status to narcotic agent; Z79.4 Long term (current) use of insulin; Z79.890 Hormone replacement therapy; Z79.899 Other long term (current) drug therapy; Z79.01 Long term (current) use of anticoagulants; Z99.2 Dependence on renal dialysis; Z87.891 Personal history of nicotine dependence
CPT/HCPCS: 36415; 36416; 70450; 71045; 71250; 72125; 74176; 80048; 80053; 82550; 82805; 83605; 83690; 83735; 83880; 83970; 84100; 84443; 84484; 85025; 85610; 85730; 86704; 86706; 86803; 87040; 87340; 90935; 93005; 93306; 96374; 96375; 96376; G0257; G0378; J0696; J3490